=== PATIENT | female | born 1955 | race Caucasian/White ===

== ENCOUNTER 2017-06-21 19:16 | Inpatient (IN) | payer BC ==
[~2017-06-21] VITALS: Ht 154.9 cm; Wt 45.9 kg
--- NOTE | 2017-06-21 19:30 | NUR ---
Dr. Rodriguez at bedside for MSE.
--- NOTE | 2017-06-21 19:30 | NUR ---
Pt brought in by ambulance, reports to have fallen, room was dark and tripped on vacuum. Pt c/o pain on left hip, left leg has outer rotation and shorter than right, +2 pulse on left leg.
[2017-06-21] MEDS ORDERED: amlodipine (19:42)
[2017-06-21] MEDS ORDERED: simvastatin (19:42)
[2017-06-21] MEDS ORDERED: ONDANSETRON 4 MG/2 ML VIAL IV ONE (19:45)
[2017-06-21] MEDS ORDERED: HYDROMORPHONE 1 MG/1 ML DISP.SYRIN IV ONE (19:45)
[2017-06-21] MEDS ORDERED: ONDANSETRON 4 MG/2 ML VIAL ONE (19:48)
[2017-06-21] MEDS ORDERED: HYDROMORPHONE 2 MG/1 ML DISP.SYRIN ONE (19:48)
--- NOTE | 2017-06-21 19:55 | NUR ---
Xray at bedside.
[2017-06-21 20:16] LABS: BASOPHILS % (AUTO) 0.2 % (0.0-2.0); EOSINOPHILS % (AUTO) 0.2 % (0.0-7.0); HEMATOCRIT 36.9 % (31.2-41.9); HEMOGLOBIN 12.2 g/dL (10.9-14.3); LYMPHOCYTES # (AUTO) 1.4 K/uL (20.0-40.0); LYMPHOCYTES % (AUTO) 9.7 % (20.5-51.5); MEAN CORPUSCULAR HGB CONC 33 g/dL (32.3-35.6); MEAN CORPUSCULAR VOLUME 84.9 fL (75.5-95.3); MONOCYTES # (AUTO) 0.8 K/uL (2.0-10.0); MONOCYTES % (AUTO) 5.7 % (0.0-11.0); NEUTROPHILS # (AUTO) 11.9 K/uL (1.8-8.9); NEUTROPHILS % (AUTO) 84.2 % (38.5-71.5); PLATELET COUNT (AUTO) 260 K/uL (179-408); RED BLOOD CELL COUNT(AUTO) 4.35 MIL/uL (3.63-4.92); WHITE BLOOD COUNT (AUTO) 14.2 K/uL (3.8-11.8)
--- NOTE | 2017-06-21 20:21 | NUR ---
Patient reports pain on left hip now 3/10.
[2017-06-21 20:22] LABS: BILIRUBIN,DIRECT 0.1 mg/dL (0.0-0.2); BILIRUBIN,TOTAL 0.5 mg/dL (0.2-1.0); CREATININE 0.9 mg/dL (0.6-1.3); POTASSIUM 4.4 mmol/L (3.5-5.1); TOTAL PROTEIN, SERUM 8.1 g/dL (6.4-8.2)
--- NOTE | 2017-06-21 20:35 | NUR ---
Received report from Lab, patient's sodium 121. notified.
--- NOTE | 2017-06-21 20:40 | NUR ---
Called [facility] for panel call.
[2017-06-21] MEDS ORDERED: METOCLOPRAMIDE HCL 10 MG/2 ML VIAL ONE (20:42)
[2017-06-21] MEDS ORDERED: diphenhydrAMINE 50 MG/1 ML VIAL ONE (20:43)
[2017-06-21] MEDS ORDERED: METOCLOPRAMIDE HCL 10 MG/2 ML VIAL IV ONE (20:45)
[2017-06-21] MEDS ORDERED: IV NORMAL SALINE 1000 ML BAG IV ONE (20:45)
[2017-06-21] MEDS ORDERED: diphenhydrAMINE 50 MG/1 ML VIAL IV ONE (20:45)
[2017-06-21] MEDS ORDERED: CLONIDINE HCL 0.1 MG TABLET PO PRN (21:00)
[2017-06-21] MEDS ORDERED: Z GUARD REMEDY PASTE 57 GM TUBE TOP PRN (21:15)
[2017-06-21] MEDS ORDERED: ONDANSETRON 4 MG/2 ML VIAL IV PRN (21:15)
[2017-06-21] MEDS ORDERED: MAGNESIUM HYDROXIDE 30 ML LIQUID UDC PO PRN (21:15)
[2017-06-21] MEDS ORDERED: AMLO1CAP9 PO (22:17)
[2017-06-21] MEDS ORDERED: GENT5DRO4 EACHEYE (22:17)
[2017-06-21] MEDS ORDERED: NEPA1.7D EACHEYE (22:17)
[2017-06-21] MEDS ORDERED: MULT-1160 PO (22:17)
[2017-06-21] MEDS ORDERED: GATI2.5D EACHEYE (22:17)
[2017-06-21] MEDS ORDERED: TIMO5SOL11 EACHEYE (22:17)
[2017-06-21] MEDS ORDERED: CALC-1095 PO (22:17)
[2017-06-21] MEDS ORDERED: CARB10DR EACHEYE (22:17)
[2017-06-21] MEDS ORDERED: SIMV80TA5 PO (22:17)
[2017-06-21] MEDS ORDERED: ferrous sulfate PO (22:17)
[2017-06-21] MEDS ORDERED: LATA2.5D7 EACHEYE (22:17)
[2017-06-21] MEDS ORDERED: ERYT3.5O24 EACHEYE (22:17)
[2017-06-21] MEDS ORDERED: SODIUM CHLORIDE 1,000 MG TABLET PO ONE (22:45)
--- NOTE | 2017-06-21 22:48 | NUR ---
REPORT GIVEN TO SESAR ALDRICH.
--- NOTE | 2017-06-21 22:50 | NUR ---
Received admission report from Jac HAQUE
[2017-06-21 23:50] VITALS: BP 139/72
[2017-06-22] MEDS: IV NS 1000 ML 1,000 ML IV PRN ×2 (00:05→16:40)
--- NOTE | 2017-06-22 00:40 | NUR ---
Admitted patient from ER via rde witt, accompanied by her . Transfer gently to bed with 3 people assist. Routine admission care done. Plan of care initiated.
--- NOTE | 2017-06-22 01:25 | NUR ---
HS snack provided, consumed 100% of food served without any problem.
[2017-06-22] MEDS: ACETAMINOPHEN 325 MG TABLET PO PRN ×2 (01:35→09:17)
[2017-06-22 04:00] VITALS: BP 129/66
--- NOTE | 2017-06-22 05:06 | NUR ---
Slept well. No complaint presented throughout the night. Refused to be repositioned/moved to avoid any pain from affected area, All needs attended and met. No significant event reported all night. Continue current plan of care.
[2017-06-22 06:49] LABS: CREATININE 0.9 mg/dL (0.6-1.3); MAGNESIUM 1.7 mg/dL (1.8-2.4); PHOSPHOROUS 3.8 mg/dL (2.5-4.9); POTASSIUM 4.1 mmol/L (3.5-5.1)
[2017-06-22 06:59] LABS: BASOPHILS % (AUTO) 0.3 % (0.0-2.0); EOSINOPHILS % (AUTO) 0.1 % (0.0-7.0); LYMPHOCYTES # (AUTO) 1.3 K/uL (20.0-40.0); LYMPHOCYTES % (AUTO) 12.3 % (20.5-51.5); MEAN CORPUSCULAR HEMOGLOBIN 28.3 uug (24.7-32.8); MEAN CORPUSCULAR HGB CONC 34 g/dL (32.3-35.6); MEAN CORPUSCULAR VOLUME 84.3 fL (75.5-95.3); MONOCYTES # (AUTO) 0.9 K/uL (2.0-10.0); MONOCYTES % (AUTO) 8.4 % (0.0-11.0); NEUTROPHILS # (AUTO) 8.3 K/uL (1.8-8.9); NEUTROPHILS % (AUTO) 78.9 % (38.5-71.5); RED BLOOD CELL COUNT(AUTO) 3.82 MIL/uL (3.63-4.92)
[2017-06-22 07:13] LABS: HEMATOCRIT 32.2 % (31.2-41.9); HEMOGLOBIN 10.9 g/dL (10.9-14.3); PLATELET COUNT (AUTO) 223 K/uL (179-408); WHITE BLOOD COUNT (AUTO) 10.6 K/uL (3.8-11.8)
[2017-06-22] MEDS: SODIUM CHLORIDE 1,000 MG TABLET PO SCH ×3 (09:18→18:35)
[2017-06-22] MEDS: AMLODIPINE 5 MG TABLET PO SCH (09:18)
[2017-06-22] MEDS: MAGNESIUM SULFATE/D5W 100 ML IV SCH ×2 (09:37→11:08)
[2017-06-22 11:32] VITALS: BP 121/54
[2017-06-22 15:44] VITALS: BP 112/64
--- NOTE | 2017-06-22 17:30 | NUR ---
Daily nursing note: 07. Received report from night nurse, regarding patient, who is admitted for a fall at home, sustaining a left hip fracture, She is not in acute distress at this time, complains of a discomfort on her left hip. She is on bowman catheter as ordered, patient is on bedrest. 0930. Patients' is at bedside at this time, with concerns dealing with her current condition, Dr. Acevedo then made rounds and talk to the patient and to ease their anxiety and answer their questions accordingly. At the same time, case management and charge nurse is aware about the concerns regarding anticipating undergoing a surgical treatment for the fracture. 1030. Patient is awake and alert, pertinent assessments done, not in acute distress, was provided with non-pharmacologic management for pain such as cold compress on the affected area, she also was given tylenol for mild discomfort 1430. Patient still complains of mild pain, however she refuses to take a pain medicine, insisting on taking the medicine at night, will endorse to night nurse. 1730. Patient has visitors at this time, not in acute distress. Needs attended promptly. Call light is in easy reach at all time, needs attended promptly, all her questions, concerns were answered accordingly. At the moment she is not asking about her surgeon, charge nurse is aware and will endorse the next charge nurse about the patients surgeon of preference.
--- NOTE | 2017-06-22 19:30 | NUR ---
RECEIVED PATIENT IN BED ALERT ORIENTED, NO SOB NO CHEST PAIN, COMPLAIN OF L HIP AND THIGH PAIN WILL MEDICATED FOR PAIN, AT BEDSIDE. FAN CATH PATENT DRAINING WITH YELLOW COLOR URINE IN MODERATE AMOUNT, CONT TO MONITOR.
[2017-06-22 20:00] VITALS: BP 138/68
[2017-06-22] MEDS: HYDROCODONE/APAP 5-325MG TABLET PO PRN (20:44)
--- NOTE | 2017-06-22 21:47 | NUR ---
PATIENT COMPLAIN OF INSOMNIA, NOTIFY DR. HOLLIS WITH ORDER OF RESTORIL 15 MP PO HS PRN FOR INSOMNIA. ORDER NOTED AND CARRIED OUT.
[2017-06-22] MEDS: TEMAZEPAM 15 MG CAPSULE PO PRN (21:59)
[2017-06-23 04:00] VITALS: BP 151/65
[2017-06-23] MEDS: HYDROCODONE/APAP 5-325MG TABLET PO PRN ×2 (04:14→21:49)
--- NOTE | 2017-06-23 06:15 | NUR ---
PATIENT SLEPT WELL MOST OF THE NIGHT, NO SOB NO CHEST PAIN, CONT ON PAIN MANAGEMENT, FAN CATH PATENT DRAINING WITH YELLOW COLOR URINE, PATIENT STATED THAT PAIN MEDS EFFECTIVE, AND SLEPT GOOD LAST NIGHT, CONT TO MONITOR. TURN AND REPOSITION MUCH POSSIBLE.
[2017-06-23 09:41] LABS: BASOPHILS % (AUTO) 0.2 % (0.0-2.0); EOSINOPHILS % (AUTO) 0.4 % (0.0-7.0); HEMATOCRIT 32.4 % (31.2-41.9); HEMOGLOBIN 10.9 g/dL (10.9-14.3); LYMPHOCYTES # (AUTO) 1.4 K/uL (20.0-40.0); LYMPHOCYTES % (AUTO) 13.9 % (20.5-51.5); MEAN CORPUSCULAR HEMOGLOBIN 28.7 uug (24.7-32.8); MEAN CORPUSCULAR HGB CONC 34 g/dL (32.3-35.6); MEAN CORPUSCULAR VOLUME 85.2 fL (75.5-95.3); MONOCYTES % (AUTO) 9.9 % (0.0-11.0); NEUTROPHILS # (AUTO) 7.5 K/uL (1.8-8.9); NEUTROPHILS % (AUTO) 75.6 % (38.5-71.5); PLATELET COUNT (AUTO) 206 K/uL (179-408); WHITE BLOOD COUNT (AUTO) 9.8 K/uL (3.8-11.8)
[2017-06-23] MEDS: AMLODIPINE 5 MG TABLET PO SCH (09:41)
[2017-06-23] MEDS: SODIUM CHLORIDE 1,000 MG TABLET PO SCH ×3 (09:41→16:04)
[2017-06-23 09:55] LABS: BILIRUBIN,TOTAL 0.4 mg/dL (0.2-1.0); CREATININE 0.8 mg/dL (0.6-1.3); MAGNESIUM 1.9 mg/dL (1.8-2.4); PHOSPHOROUS 2.6 mg/dL (2.5-4.9); POTASSIUM 4.3 mmol/L (3.5-5.1); TOTAL PROTEIN, SERUM 6.4 g/dL (6.4-8.2)
[2017-06-23 11:34] VITALS: BP 151/71
[2017-06-23 15:41] VITALS: BP 124/60
--- NOTE | 2017-06-23 18:48 | NUR ---
0730: RECEIVED PT AAOX4. NO S/SX OF DISTRESS OR SOB. BP WAS SLIGHTLY ELEVATED, BUT HAS HTN MEDICATION SCHEDULED FOR DAILY ROUTINE. NO COMPLAIN OF PAIN NOTED AT THE TIME. IV SITE ON LEFT AC #18G. NO SIGNS OF INFECTION OR INFILTRATION. NO REDNESS NOTED. DRESSING INTACT. CALL LIGHT WITHIN REACH. SAFETY MEASURES PROVIDED. WILL CONTINUE TO MONITOR. 1130: SPOKE TO DR. CROWELL (ORTHOPEDIC SURGEON) RE: HIP SURGERY. STATED THAT IT IS UNLIKELY TO DO THE SURGERY TODAY AND WILL VISIT PT WITHIN AN HOUR. PT IS AWARE. 1300: PT WAS SEEN BY DR. CROWELL, SURGERY IS SCHEDULED AND DISCHARGE IS SET FOR TOMORROW, SATURDAY 06/24 TO [facility]. PT ON NPO AFTER MIDNIGHT. TRANSPORTATION SCHEDULED WITH [employer] @1000 (TRIP #: [id number]). SPOKE WITH PT. CHARGE NURSE IS AWARE. 1848: PT WAS FOUND IN BED AAOX4. NO S/SX OF DISTRESS OR SOB. NO COMPLAIN OF PAIN NOTED AT THIS TIME. IV SITE DRESSING INTACT. PT EXPRESSED RELIEF FOR SCHEDULED SURGERY TOMORROW. REQUESTED FOR SLEEPING MED TONIGHT AROUND 2200. WILL ENDORSE TO AUTOMOTIVE UPHOLSTERER RN. CALL LIGHT WITHIN REACH. SAFETY MEASURES PROVIDED. WILL CONTINUE TO MONITOR.
--- NOTE | 2017-06-23 19:30 | NUR ---
RECEIVED PATIENT AWAKE IN BED, SHE'S AOX4 AND UNABLE TO STATE HER NEEDS. SHE DENIES PAIN OR ANY DISTRESS. SAFETY AND COMFORT MEASURES IN PLACE. WILL CONTINUE TO MONITOR PATIENT Addendum: 06/24/17 at 0136 by LUKAS GAINES RN AND ABLE TO STATE HER NEEDS
[2017-06-23 20:00] VITALS: BP 155/73
[2017-06-23 21:00] VITALS: BP 138/77
[2017-06-23] MEDS: TEMAZEPAM 15 MG CAPSULE PO PRN (22:22)
[2017-06-24 04:00] VITALS: BP 147/81
[2017-06-24] MEDS: HYDROCODONE/APAP 5-325MG TABLET PO PRN ×2 (05:01→09:06)
[2017-06-24] MEDS: IV NS 1000 ML 1,000 ML IV PRN (05:56)
--- NOTE | 2017-06-24 06:21 | NUR ---
PATIENT SLEPT WELL THROUGH THE NIGHT. PAIN MEDS GIVEN X2 WITH EFFECT. NO S/S OF PAIN OR DISTRESS AT THIS TIME. SAFETY AND COMFORT MEASURES IN PLACE, ALL NEEDS MET. PATIENT IS ASLEEP
[2017-06-24 06:40] LABS: BASOPHILS # (AUTO) 0.1 K/uL (0.0-8.0); BASOPHILS % (AUTO) 0.7 % (0.0-2.0); EOSINOPHILS # (AUTO) 0.1 K/uL (0.0-0.7); EOSINOPHILS % (AUTO) 0.7 % (0.0-7.0); HEMOGLOBIN 11.1 g/dL (10.9-14.3); LYMPHOCYTES # (AUTO) 1.7 K/uL (20.0-40.0); LYMPHOCYTES % (AUTO) 13.4 % (20.5-51.5); MEAN CORPUSCULAR HEMOGLOBIN 28.4 uug (24.7-32.8); MEAN CORPUSCULAR HGB CONC 34 g/dL (32.3-35.6); MEAN CORPUSCULAR VOLUME 84.6 fL (75.5-95.3); MONOCYTES # (AUTO) 1.4 K/uL (2.0-10.0); MONOCYTES % (AUTO) 10.5 % (0.0-11.0); NEUTROPHILS # (AUTO) 9.6 K/uL (1.8-8.9); NEUTROPHILS % (AUTO) 74.7 % (38.5-71.5); PLATELET COUNT (AUTO) 214 K/uL (179-408); RED BLOOD CELL COUNT(AUTO) 3.89 MIL/uL (3.63-4.92); WHITE BLOOD COUNT (AUTO) 12.8 K/uL (3.8-11.8)
[2017-06-24 06:59] LABS: CREATININE 0.7 mg/dL (0.6-1.3); MAGNESIUM 1.8 mg/dL (1.8-2.4); PHOSPHOROUS 3.6 mg/dL (2.5-4.9); POTASSIUM 4.4 mmol/L (3.5-5.1)
[2017-06-24] MEDS: SODIUM CHLORIDE 1,000 MG TABLET PO SCH (08:48)
[2017-06-24] MEDS: AMLODIPINE 5 MG TABLET PO SCH (08:48)
[2017-06-24 08:49] VITALS: BP 171/83
[2017-06-24] MEDS ORDERED: POLYVINYL ALCOHOL OPHT DROPS 15 ML BOTTLE EACHEYE PRN (10:30)
--- NOTE | 2017-06-24 10:40 | NUR ---
pt discharged with ambulance at 1030. pt given copy of discharge summary and belongings list. pt verbalizes understand with plan of care. pt given norvasc and norco for pain. pt bp at 171, pt given catapres. vitals reassessed in 30 mins. bp at 130s. other vitals stable. pt signed discharge summary and belongings list. copies placed in chart. no wound photos taken due to no wounds. pt left with ambulance. given report to [facility] nurse jody. pt left with bowman and iv site. no sob nor acute distress noted.
[2017-06-24] MEDS ORDERED: GENTAMICIN SULFATE OPHT DROP 5 ML BOTTLE EACHEYE SCH (13:00)
[2017-06-24] MEDS ORDERED: TIMOLOL MALEATE XE 0.5% OPHT 5 ML BOTTLE EACHEYE SCH (17:00)
[2017-06-24] MEDS ORDERED: LATANOPROST OPHT DROP 2.5 ML BOTTLE EACHEYE SCH (21:00)
[2017-06-25] MEDS ORDERED: Medication Not On Formulary EA (Multivits-Min/Iron/FA/Lutein (Centrum Silver Women Table PO SCH (09:00)
== END 2017-06-24 10:30 | disposition short-term general hospital (02) | DRG 536 ==
LOC: ER 19:17 → MED 22:23
PROVIDERS: ADMIT Internal Medicine; ATTEND Internal Medicine
DX: S72.012A Unspecified intracapsular fracture of left femur, initial encounter for closed fracture (principal); E22.2 Syndrome of inappropriate secretion of antidiuretic hormone; W18.09XA Striking against other object with subsequent fall, initial encounter; Y93.E3 Activity, vacuuming; Y92.009 Unspecified place in unspecified non-institutional (private) residence as the place of occurrence of the external cause; E78.5 Hyperlipidemia, unspecified; Z79.899 Other long term (current) drug therapy; M81.0 Age-related osteoporosis without current pathological fracture; Z88.6 Allergy status to analgesic agent; Z88.1 Allergy status to other antibiotic agents; H40.9 Unspecified glaucoma; E87.6 Hypokalemia; E78.00 Pure hypercholesterolemia, unspecified; Z87.81 Personal history of (healed) traumatic fracture; R91.1 Solitary pulmonary nodule; D72.829 Elevated white blood cell count, unspecified; R73.9 Hyperglycemia, unspecified; I10 Essential (primary) hypertension; E86.1 Hypovolemia
CPT/HCPCS: 36415; 71045; 72170; 73502; 83735; 84100; 84443; 85025; 85730; 93005; A4663; J1170; J1200; J2405; J2765; J3475; J7030